=== PATIENT | male | born 1965 ===

== ENCOUNTER 2018-03-15 16:00 | Emergency (ER) | payer MEDICAID ==
[2018-03-15 16:00] VITALS: BMI 27.8
[2018-03-15 16:24] VITALS: PULSE 62
[2018-03-15] MEDS ORDERED: Sodium Chloride 0.9% 1,000 ML IV STA (16:48)
--- NOTE | 2018-03-15 17:01 | ED PDOC ---
Arrival/HPI - General Chief Complaint: Cough, Cold, Congestion Time Seen by Provider: 03/15/18 16:25 Historian: Patient - History of Present Illness Narrative History of Present Illness (Text): 03/15/18 16:47 53 year old male, with past medical history of diverticulitis, presents to the Emergency Department complaining of chills, non-productive cough, sneezing and nasal congestion since 1 week. Patient denies any associated fever, shortness of breath, productive cough or chest discomfort. Patient informs visiting his PMD Dr. Pop with the presented symptoms, who subsequently referred patient to the Emergency Department for evaluation of possible pneumonia. Patient denies any other associated somatic complaints. Patient states intermittent constipation and diarrhea secondary to diverticulitis but denies any abdominal pain. Patient denies any nausea, vomiting, headache, dizziness, neck pain, back pain, dysuria, dyspnea on exertion or any other complaints. PMD: Dr. Pop 03/15/18 17:57 Time/Duration: 1 week Symptom Onset: Gradual Symptom Course: Unchanged Activities at Onset: Light Context: Home Past Medical History - Provider Review Nursing Documentation Reviewed: Yes - Infectious Disease Hx of Infectious Diseases: None - Tetanus Immunization Tetanus Immunization: Unknown - Cardiac Hx Hypertension: Yes - Pulmonary Hx Respiratory Disorders: No - Neurological Hx Neurological Disorder: No - HEENT Hx HEENT Disorder: No - Renal Hx Renal Disorder: No - Endocrine/Metabolic Hx Endocrine Disorders: No - Hematological/Oncological Hx Blood Transfusions: No - Integumentary Hx Dermatological Disorder: No - Musculoskeletal/Rheumatological Hx Musculoskeletal Disorders: Yes Hx Arthritis: Yes - Gastrointestinal Hx Gastrointestinal Disorders: No - Genitourinary/Gynecological Hx Genitourinary Disorders: No - Psychiatric Hx Psychophysiologic Disorder: Yes (DRINKS OCCASIONALLY BEER OR SHOTS) Hx Substance Use: No - Surgical History Hx Tonsillectomy: Yes - Anesthesia Hx Anesthesia Reactions: No Family/Social History - Physician Review Nursing Documentation Reviewed: Yes Family/Social History: No Known Family HX Smoking Status: Never Smoked Hx Alcohol Use: Yes (DRINKS OCCASIONALLY OR WEEKENDS,BALLGAME) Hx Substance Use: No Allergies/Home Meds Allergies/Adverse Reactions: Allergies No Known Allergies Allergy (Verified 03/11/16 23:18) Home Medications: Home Meds Medication Instructions Recorded Confirmed Cetirizine HCl [Wal-Zyr] 1 tab PO DAILY 06/21/17 07/22/17 Lisinopril [Zestril] 20 mg PO DAILY 06/21/17 07/22/17 Omeprazole 40 mg PO DAILY 06/21/17 07/22/17 Cholecalciferol (Vitamin D3) 50,000 unit PO QWK 07/22/17 07/22/17 [Vitamin D3] Review of Systems - Review of Systems Constitutional: Other (subjective fever and chills). absent: Fevers ENT: Sinus Congestion Respiratory: Cough. absent: SOB, Sputum, Wheezing Cardiovascular: absent: Chest Pain, SIERRA Gastrointestinal: absent: Abdominal Pain, Vomiting, Appetite Changes Genitourinary Male: absent: Dysuria, Hematuria Musculoskeletal: absent: Back Pain, Neck Pain Neurological: absent: Headache, Dizziness Physical Exam Vital Signs Reviewed: Yes Vital Signs Temp Pulse Resp BP Pulse Ox 03/15/18 16:18 98.6 F 62 20 178/97 H 99 Temperature: Afebrile Blood Pressure: Hypertensive Pulse: Regular Respiratory Rate: Normal Appearance: Positive for: Well-Appearing, Non-Toxic, Comfortable Pain Distress: None Mental Status: Positive for: Alert and Oriented X 3 - Systems Exam Head: Present: Atraumatic, Normocephalic Pupils: Present: PERRL Extroacular Muscles: Present: EOMI Conjunctiva: Present: Normal Ears: Present: NORMAL TM Mouth: Present: Moist Mucous Membranes Pharnyx: No: ERYTHEMA Nose (External): Present: Atraumatic Neck: Present: Normal Range of Motion Respiratory/Chest: Present: Clear to Auscultation, Good Air Exchange. No: Respiratory Distress, Accessory Muscle Use Cardiovascular: Present: Regular Rate and Rhythm, Normal S1, S2. No: Murmurs Abdomen: No: Tenderness, Distention, Peritoneal Signs Back: Present: Normal Inspection Upper Extremity: Present: Normal Inspection. No: Cyanosis, Edema Lower Extremity: Present: Normal Inspection. No: Edema Neurological: Present: GCS=15, CN II-XII Intact, Speech Normal Skin: Present: Warm, Dry, Normal Color. No: Rashes Psychiatric: Present: Alert, Oriented x 3, Normal Insight, Normal Concentration Medical Decision Making ED Course and Treatment: 03/15/18 16:48 Impression: 53 year old male presents to the Emergency Department complaining of chills, shortness of breath, sneezing and nasal congestion. Differential Diagnosis included but are not limited to: Pneumonia Plan: -- Labs -- Chest X-ray -- IV Fluids -- Rapid Flu -- Reassess and disposition Prior Visits: Notes and results from previous visits were reviewed. Progress Notes: 03/15/18 16:48 EKG: Ordered, reviewed, and independently interpreted the EKG. Rate : 69 BPM Rhythm : NSR Interpretation : No ST-segment elevations or depressions, no T-wave inversions, normal intervals. 03/15/18 17:19 Xray negative for pneumonia 03/15/18 17:58 Flu negative. Labs grossly normal. BNP WNL. Trop x 1 negative. Patient is well appearing and presentation consistent with viral uri 03/15/18 18:[address] Pop and made aware of negative findings. Patient denies any shortness of breath and has no risk factors for PE. He was given detailed return instructions. Patient will be discharged home with follow-up instructions with PMD. Dr. Pop is aware and agrees with plan. 03/15/18 18:25 - RAD Interpretation Narrative RAD Interpretations (Text): 03/15/18 18:01 Chest X-ray reviewed by radiologist, shows: FINDINGS: LUNGS: No active pulmonary disease. PLEURA: No significant pleural effusion identified. No pneumothorax apparent. CARDIOVASCULAR: Normal. OSSEOUS STRUCTURES: No significant abnormalities. VISUALIZED UPPER ABDOMEN: Normal. OTHER FINDINGS: None. IMPRESSION: No active disease. Radiology Orders: 03/15/18 16:37 CHEST TWO VIEWS (PA/LAT) [RAD] Stat Audit Clerks Supervisor: Radiologist - Medication Orders Current Medication Orders: Sodium Chloride (Sodium Chloride 0.9%) 1,000 mls @ 999 mls/hr IV .Q1H1M STA Stop: 03/15/18 17:48 - Scribe Statement The provider has reviewed the documentation as recorded by the Scribe Samantha Avila. All medical record entries made by the Scribe were at my direction and personally dictated by me. I have reviewed the chart and agree that the record accurately reflects my personal performance of the history, physical exam, medical decision making, and the department course for this patient. I have also personally directed, reviewed, and agree with the discharge instructions and disposition. Disposition/Present on Arrival - Present on Arrival Any Indicators Present on Arrival: No History of DVT/PE: No History of Uncontrolled Diabetes: No Urinary Catheter: No History of Decub. Ulcer: No History Surgical Site Infection Following: None - Disposition Have Diagnosis and Disposition been Completed?: Yes Diagnosis: URI (upper respiratory infection) Disposition: HOME/ ROUTINE Disposition Time: 17:55 Patient Plan: Discharge Condition: GOOD Discharge Instructions (ExitCare): Viral Upper Respiratory Infection, Adult (DC) Additional Instructions: Follow-up with PMD within 2 days. Return to ED if condition worsens. Forms: [employer] (Telugu)
--- NOTE | 2018-03-15 17:18 | RAD ---
Date of service: 03/15/2018 HISTORY: Cough. Pneumonia suspected COMPARISON: No prior. TECHNIQUE: Chest PA and lateral FINDINGS: LUNGS: No active pulmonary disease. PLEURA: No significant pleural effusion identified. No pneumothorax apparent. CARDIOVASCULAR: Normal. OSSEOUS STRUCTURES: No significant abnormalities. VISUALIZED UPPER ABDOMEN: Normal. OTHER FINDINGS: None. IMPRESSION: No active disease.
[2018-03-15 17:43] LABS: ALB/GLOB RATIO 1.2 (1.1-1.8); ALBUMIN 4.5 g/dL (3.0-4.8); ALT/SGPT 38 U/L (7-56); AST/SGOT 34 U/L (17-59); BLOOD UREA NITROGEN 15 mg/dL (7-21); CALCIUM 9.2 mg/dL (8.4-10.5); GFR NON-AFRICAN AMERICAN > 60; LIPASE 63 U/L (23-300)
[2018-03-15 17:50] LABS: BASO # 0.03 K/mm3 (0.0-2.0); BASO % 0.6 % (0.0-3.0); EOS % 0.8 % (1.5-5.0); GRAN # 3.51 (1.4-6.5); GRAN % 66.4 % (50.0-68.0); HEMOGLOBIN 13.5 g/dL (14.0-18.0); LYMPH # 1.5 (1.2-3.4); LYMPH % 27.5 % (22.0-35.0); MEAN CELL VOLUME 83.2 fl (80.0-105.0); MEAN CORPUSCULAR HEMOGLOBIN 28.8 pg (25.0-35.0); MEAN CORPUSCULAR HGB CONC 34.6 g/dl (31.0-37.0); MONO # 0.3 (0.1-0.6); MONO % 4.7 % (1.0-6.0); RBC 4.69 10^6/uL (3.5-6.1); RED CELL DISTRIBUTION WIDTH 13.2 % (11.5-14.5); WHITE BLOOD COUNT 5.3 10^3/ul (4.5-11.0)
[2018-03-15 17:55] LABS: B-TYPE NATRIURETIC PEPTIDE 35.2 pg/mL (0-450); TROPONIN I < 0.01 ng/mL
[2018-03-15 18:11] VITALS: BP 132/79; RESP 16; TEMP 97.9; O2SAT 98
[2018-03-15 18:33] LABS: CK-MB 3.4 ng/mL (0.0-3.6)
--- NOTE | 2018-03-16 06:31 | CARD ---
APPROVED REPORT Date of service: 03/15/2018 EKG Measurement Heart [id number] <Conclusion> Normal sinus rhythm Normal ECG
== END 2018-03-15 18:08 | disposition home or self-care (01) ==
LOC: ED 16:00
DX: J06.9 Acute upper respiratory infection, unspecified (principal); I10 Essential (primary) hypertension
CPT/HCPCS: 71046; 80053; 82550; 82553; 83690; 83735; 83880; 84100; 84484; 85025; 87804; 93005; 96360; 99282; J7030